=== PATIENT | female | born 1945 | race Caucasian/White ===

== ENCOUNTER 2018-02-21 06:44 | Day surgery (SDC) | payer MEDICARE, BC ==
[2018-02-18 12:27] LABS: BASOPHILS # (AUTO) 0.01 x10^3/uL (0-0.1); BASOPHILS % (AUTO) 0 % (0-1); EOSINOPHILS # (AUTO) 0.33 x10^3/uL (0-0.4); EOSINOPHILS % (AUTO) 4 % (1-7); LYMPHOCYTES % (AUTO) 12 % (22-44); MD NO; MEAN CORPUSCULAR HEMOGLOBIN 31.6 pg (27.0-34.8); MEAN CORPUSCULAR HGB CONC 33.6 g/dL (32.4-35.8); MEAN CORPUSCULAR VOLUME 93.9 fL (80-100); MEAN PLATELET VOLUME 8.4 fL (7.4-10.4); MONOCYTES # (AUTO) 0.85 x10^3/uL (0.2-0.8); MONOCYTES % (AUTO) 11 % (2-9); NEUTROPHILS # (AUTO) 5.84 x10^3/uL (1.8-6.8); NEUTROPHILS % (AUTO) 73 % (42-75); PLATELET COUNT 362 x10^3/uL (130-400); RED BLOOD COUNT 4.01 x10^6/uL (3.82-5.3); RED CELL DISTRIBUTION WIDTH 14.6 % (9.6-15.2)
[2018-02-18 12:43] LABS: ALANINE AMINOTRANSFERASE 34 U/L (12-78); ALBUMIN 3.9 g/dL (3.4-5.0); ANION GAP 10 mmol/L (5-15); CHLORIDE 110 mmol/L (98-107); CREATININE 1.33 mg/dL (0.55-1.02)
[2018-02-18 12:45] LABS: ALKALINE PHOSPHATASE 103 U/L (45-117); BILIRUBIN,TOTAL 0.4 mg/dL (0.2-1.0); TOTAL PROTEIN 8.2 g/dL (6.4-8.2)
[2018-02-18 12:55] LABS: INTERNATIONAL NORMALIZED RATIO 1.03 (0.93-1.1); PROTHROMBIN TIME 10.7 Seconds (9.6-11.5)
[~2018-02-21] VITALS: Ht 152.4 cm; Wt 112.4 kg
[~2018-02-21 06:44] MED LIST: ALLO100T30 PO; ATOR10TA9 PO; CLIN60LO2 TP; DILT300C45 PO; GLIM4TAB2 PO; GLUC-121 PO; INSU100I32 SC; LEVO50TA5 PO; METF750T2 PO; NEBI20TA2 PO; TRIA1CAP3 PO; VALS320T2 PO
[2018-02-21] MEDS ORDERED: LACTATED RINGERS 1,000 ML IV SCH (06:51)
[2018-02-21] MEDS ORDERED: ONDANSETRON ODT 8 MG PO ONE (07:00)
[2018-02-21] MEDS ORDERED: ACETAMINOPHEN 500 MG TABLET PO ONE (07:00)
[2018-02-21] MEDS ORDERED: HEPARIN 1,000 UNITS/ML, 10ML ONE (07:09)
[2018-02-21] MEDS ORDERED: BUPIVACAINE/PF-EPI 0.5% 1:200K ONE (07:09)
[2018-02-21 07:40] VITALS: BP 148/59
[2018-02-21] MEDS ORDERED: MIDAZOLAM 1 MG/ML, 2ML ONE (08:05)
[2018-02-21] MEDS ORDERED: FENTANYL PF 100 MCG/2ML ONE (08:05)
[2018-02-21] MEDS ORDERED: ALBUTEROL SULFATE 2.5 MG/3 ML NPPB PRN (08:30)
[2018-02-21] MEDS ORDERED: LORazepam 2 MG/ML, 1ML IVPush PRN (08:30)
[2018-02-21] MEDS ORDERED: MIDAZOLAM 1 MG/ML, 2ML IV PRN (08:30)
[2018-02-21] MEDS ORDERED: FENTANYL PF 100 MCG/2ML IV PRN (08:30)
[2018-02-21] MEDS ORDERED: DIAZEPAM 5 MG/ML, 2ML IVPush PRN (08:30)
[2018-02-21] MEDS ORDERED: HYDROmorphone 1 MG/ML, 1ML IV PRN (08:30)
[2018-02-21] MEDS ORDERED: MEPERIDINE/PF 25MG/0.5ML IVPush PRN (08:30)
[2018-02-21] MEDS ORDERED: KETOROLAC 30 MG/1 ML IV PRN (08:30)
[2018-02-21] MEDS ORDERED: METOPROLOL 1 MG/ML, 5ML IV PRN (08:30)
[2018-02-21] MEDS ORDERED: EPHEDRINE 50 MG/ML, 1ML IVPush PRN (08:30)
[2018-02-21] MEDS ORDERED: DIPHENHYDRAMINE 50 MG/ML, 1ML IVPush PRN (08:30)
[2018-02-21] MEDS ORDERED: MORPHINE SULFATE 4 MG/ML, 1ML IVPush PRN (08:30)
[2018-02-21] MEDS ORDERED: LABETALOL 5MG/ML, 20ML IV PRN (08:30)
[2018-02-21] MEDS ORDERED: OXYcodone 5 MG/5 ML ORAL.SOL UDC PO PRN (08:30)
[2018-02-21] MEDS ORDERED: PROCHLORPERAZINE 5 MG/ML, 2ML IV PRN (08:30)
[2018-02-21] MEDS ORDERED: hydrALAzine 20 MG/ML, 1ML ONE (10:04)
[2018-02-21] MEDS: hydrALAzine 20 MG/ML, 1ML IV PRN ×2 (10:06→10:50)
[2018-02-21] MEDS ORDERED: VISIPAQUE 270 MG/ML, 50ML BOTTLE ONE (10:06)
[2018-02-21] MEDS ORDERED: KETOROLAC 30 MG/1 ML ONE (10:34)
[2018-02-21] MEDS ORDERED: OXYcodone 5 MG/5 ML ORAL.SOL UDC ONE (10:34)
[2018-02-21] MEDS ORDERED: MORPHINE SULFATE 4 MG/ML, 1ML ONE (10:40)
[2018-02-21] MEDS ORDERED: CEFAZOLIN 1,000 MG ONE (15:51)
[2018-02-21] MEDS ORDERED: PROPOFOL 10 MG/ML, 20ML ONE (15:51)
[2018-02-21] MEDS ORDERED: DEXAMETHASONE 4 MG/ML, 1ML ONE (15:51)
[2018-02-25] MEDS ORDERED: CLIN40CR2 TP (11:42)
[2018-02-25] MEDS ORDERED: ONDA4TAB7 PO (11:42)
[2018-02-25] MEDS ORDERED: BLAC40CA PO (12:59)
== END 2018-02-21 12:35 | disposition home or self-care (01) ==
LOC: OUT 06:44
PROVIDERS: ATTEND Specialist
DX: Z45.2 Encounter for adjustment and management of vascular access device (principal); C54.1 Malignant neoplasm of endometrium; E66.01 Morbid (severe) obesity due to excess calories; G47.33 Obstructive sleep apnea (adult) (pediatric); I10 Essential (primary) hypertension; E11.9 Type 2 diabetes mellitus without complications; Z98.890 Other specified postprocedural states; Z90.49 Acquired absence of other specified parts of digestive tract; Z90.710 Acquired absence of both cervix and uterus; Z72.89 Other problems related to lifestyle; Z79.899 Other long term (current) drug therapy
CPT/HCPCS: 36415; 36561; 71045; 77001; 80053; 82962; 85025; 85610; 85730; 86304; 93005; C1788; J0360; J0690; J1100; J1644; J1885; J2250; J2704; J3010; J7120; Q0162; Q9966

== ENCOUNTER 2018-03-16 10:09 | Day surgery (SDC) | payer MEDICARE, BC ==
[~2018-03-16] VITALS: Ht 154.9 cm; Wt 114.1 kg
[~2018-03-16 10:09] MED LIST changes: +BLAC40CA PO; +CLIN40CR2 TP; +ONDA4TAB7 PO
[2018-03-16] MEDS ORDERED: SODIUM CHLORIDE 0.9% 1,000 ML IV SCH (10:38)
[2018-03-16] MEDS ORDERED: DIPH25CA61 PO (10:44)
[2018-03-16] MEDS ORDERED: METHYLPREDNISONE PO (10:46)
[2018-03-16 10:47] VITALS: BP 149/69
[2018-03-16] MEDS ORDERED: LIDOCAINE/PF 1%, 30ML ONE (11:52)
[2018-03-16] MEDS ORDERED: FENTANYL PF 100 MCG/2ML ONE (12:02)
[2018-03-16] MEDS ORDERED: NALOXONE 1 MG/ML, 2ML ONE (12:03)
[2018-03-16] MEDS ORDERED: MIDAZOLAM 1 MG/ML, 5ML ONE (12:03)
[2018-03-16] MEDS ORDERED: FLUMAZENIL 0.1 MG/1 ML, 5ML ONE (12:03)
== END 2018-03-16 14:10 | disposition home or self-care (01) ==
LOC: OUT 10:09
PROVIDERS: ATTEND Specialist
DX: Z45.2 Encounter for adjustment and management of vascular access device (principal); C54.1 Malignant neoplasm of endometrium; Z72.89 Other problems related to lifestyle; E11.9 Type 2 diabetes mellitus without complications; Z85.42 Personal history of malignant neoplasm of other parts of uterus; Z90.710 Acquired absence of both cervix and uterus; Z90.49 Acquired absence of other specified parts of digestive tract; Z98.890 Other specified postprocedural states
CPT/HCPCS: 36590; 77001; 99156; 99157; J2250; J3010; J3490; J7030; J2310